=== PATIENT | female | born 1935 | race Caucasian/White ===

== ENCOUNTER 2017-05-23 07:22 | Day surgery (SDC) | payer OTHER, BC ==
[2017-05-22 09:16] VITALS: BMI 21.1
[2017-05-23] MEDS ORDERED: EPINEPHrine/PF 1 MG/1 ML (1:1,000) AMPULE ONE (07:31)
[2017-05-23] MEDS ORDERED: LIDOCAINE HCL/PF 1% SDV 5ML VIAL ONE (07:31)
[2017-05-23] MEDS ORDERED: BSS (NA/CA/MG/K) BALANCED SALT SOLUTION OPHTH SOLN 15 ML BOTTLE ONE (07:31)
[2017-05-23] MEDS ORDERED: CYCLOPENTOLATE HCL 1% OPHTH SOLN 2 ML BOTTLE ONE (07:36)
[2017-05-23] MEDS ORDERED: TROPICAMIDE 1% OPHTH SOLN 15 ML BOTTLE ONE (07:36)
[2017-05-23] MEDS ORDERED: CIPROFLOXACIN 0.3% EYE DROPS 5 ML BOTTLE ONE (07:36)
[2017-05-23] MEDS ORDERED: FLURBIPROFEN 0.03% OPHTH SOLN 2.5 ML BOTTLE ONE (07:36)
[2017-05-23] MEDS ORDERED: PHENYLEPHRINE 2.5% OPHTH SOLN 15 ML BOTTLE ONE (07:36)
[2017-05-23] MEDS ORDERED: ACETAMINOPHEN 325 MG TABLET (FP) PO PRN (07:48)
[2017-05-23 07:50] VITALS: TEMP 97.5
[2017-05-23] MEDS: TROPICAMIDE 1% OPHTH SOLN 15 ML BOTTLE OP SCH ×3 (07:55→08:10)
[2017-05-23] MEDS: PHENYLEPHRINE 2.5% OPHTH SOLN 15 ML BOTTLE OP SCH ×3 (07:55→08:10)
[2017-05-23] MEDS: FLURBIPROFEN 0.03% OPHTH SOLN 2.5 ML BOTTLE OP SCH ×3 (07:55→08:10)
[2017-05-23] MEDS: CIPROFLOXACIN HCL 0.3% OPHTH 2.5ML BOTTLE OP SCH ×3 (07:55→08:10)
[2017-05-23] MEDS: CYCLOPENTOLATE HCL 1% OPHTH SOLN 2 ML BOTTLE OP SCH ×3 (07:55→08:10)
[2017-05-23] MEDS ORDERED: POVIDONE-IODINE 5% OPHTHALMIC PREP 30 ML SOLUTION OS ONE (09:12)
[2017-05-23] MEDS ORDERED: TETRACAINE 0.5% OPHTH SOLN 2 ML BOTTLE OS ONE (09:15)
[2017-05-23] MEDS ORDERED: BSS (NA/CA/MG/K) BALANCED SALT SOLUTION OPHTH SOLN 15 ML BOTTLE OS ONE (09:24)
[2017-05-23] MEDS ORDERED: LIDOCAINE HCL 1% PRESERVATIVE FREE - 30ML VIAL IO ONE (09:24)
[2017-05-23] MEDS ORDERED: CHONDROITIN SU A/HYALUR SOD 1 KIT IO ONE ×2 (09:24→09:48)
[2017-05-23] MEDS ORDERED: EPINEPHrine/PF 1 MG/1 ML (1:1,000) AMPULE IO ONE (09:31)
[2017-05-23] MEDS ORDERED: ACETAMINOPHEN 325 MG TABLET (FP) ONE (10:20)
[2017-05-23 11:14] VITALS: BP 124/50; PULSE 62
--- NOTE | 2017-05-23 11:22 | OP ---
DATE OF OPERATION: DATE OF DICTATION: 05/23/2017 OPERATION: Phacoemulsification of left cataract with posterior chamber intraocular lens implantation. Lens used: [id number], 21.0 diopter power, serial no. [id number]. PREOPERATIVE DIAGNOSIS: Cataract, left eye. POSTOPERATIVE DIAGNOSIS: Cataract, left eye. SURGEON: Neil Pozo M.D. ANESTHESIA: Topical MAC. COMPLICATIONS: None. PROCEDURE: The patient was brought to the operating room and correctly identified along with the operative site and the correct intraocular lens power. The patient was then prepped and draped in the usual sterile fashion including 5% Betadine solution in the conjunctival sac and an eyelid drape. An eyelid speculum was then placed in the left eye. A paracentesis port was created and approximately 0.5 mL of preservative-free lidocaine was then injected into the eye. Viscoelastic was then injected to inflate the anterior chamber. A temporal clear corneal wound was created. A continuous circular capsulorrhexis was performed. The nucleus was then hydrodissected with BSS and removed with phacoemulsification. The remaining cortical material was irrigated and aspirated. Viscoelastic was injected to inflate the capsular bag and the intraocular lens was then implanted into the capsular bag. The remaining Viscoelastic was irrigated and aspirated from the eye. The IOL was noted to be well centered and completely covered by the anterior capsulorrhexis. Topical vancomycin was placed and the eye patched and shielded. All wounds were tested and found to be watertight. No suture was placed. The eye was then shielded. The patient was then discharged from the operating room in stable condition. NEIL POZO M.D. [id number]
== END 2017-05-23 11:15 | disposition home or self-care (01) ==
LOC: JASU-SURG 07:22
PROVIDERS: ATTEND Ophthalmology
PROC: 08RK3JZ Replacement of Left Lens with Synthetic Substitute, Percutaneous Approach (ICD-10-PCS; principal; 2017-05-23 09:00)
DX: H26.9 Unspecified cataract (principal)

== ENCOUNTER 2017-06-20 06:36 | Day surgery (SDC) | payer OTHER, BC ==
[2017-06-19 12:09] VITALS: BMI 21.1
[~2017-06-20 06:36] MED LIST: ACETAMINOPHEN 325 MG TABLET (FP) PO PRN; CHONDROITIN SU A/HYALUR SOD 1 KIT IO ONE; LIDOCAINE HCL 1% PRESERVATIVE FREE - 30ML VIAL IO ONE; TETRACAINE 0.5% OPHTH SOLN 2 ML BOTTLE TP ONE
[2017-06-20 07:09] VITALS: TEMP 97.8
[2017-06-20] MEDS ORDERED: TROPICAMIDE 1% OPHTH SOLN 15 ML BOTTLE ONE (07:12)
[2017-06-20] MEDS ORDERED: CYCLOPENTOLATE HCL 1% OPHTH SOLN 2 ML BOTTLE ONE (07:12)
[2017-06-20] MEDS ORDERED: FLURBIPROFEN 0.03% OPHTH SOLN 2.5 ML BOTTLE ONE (07:12)
[2017-06-20] MEDS ORDERED: CIPROFLOXACIN 0.3% EYE DROPS 5 ML BOTTLE ONE (07:12)
[2017-06-20] MEDS ORDERED: PHENYLEPHRINE 2.5% OPHTH SOLN 15 ML BOTTLE ONE (07:12)
[2017-06-20] MEDS ORDERED: CIPROFLOXACIN 0.3% EYE DROPS 5 ML BOTTLE OD ONE (07:15)
[2017-06-20] MEDS: CYCLOPENTOLATE HCL 1% OPHTH SOLN 2 ML BOTTLE OP SCH ×3 (07:15→07:35)
[2017-06-20] MEDS: TROPICAMIDE 1% OPHTH SOLN 15 ML BOTTLE OP SCH ×3 (07:15→07:35)
[2017-06-20] MEDS ORDERED: FLURBIPROFEN 0.03% OPHTH SOLN 2.5 ML BOTTLE OD ONE (07:15)
[2017-06-20] MEDS: PHENYLEPHRINE 2.5% OPHTH SOLN 15 ML BOTTLE OP SCH ×3 (07:15→07:35)
[2017-06-20] MEDS ORDERED: POVIDONE-IODINE 5% OPHTHALMIC PREP 30 ML SOLUTION ONE (07:20)
[2017-06-20] MEDS ORDERED: EPINEPHrine/PF 1 MG/1 ML (1:1,000) AMPULE ONE (07:20)
[2017-06-20] MEDS ORDERED: LIDOCAINE HCL/PF 1% SDV 5ML VIAL ONE (07:20)
[2017-06-20] MEDS ORDERED: VANCOMYCIN 500 MG VIAL (RESTRICTED TO ID ONLY) ONE (07:20)
[2017-06-20] MEDS ORDERED: WATER FOR INJ,STERILE 10 ML ONE (07:20)
[2017-06-20] MEDS ORDERED: TETRACAINE 0.5% OPHTH SOLN 2 ML BOTTLE ONE (07:21)
[2017-06-20] MEDS: CIPROFLOXACIN HCL 0.3% OPHTH 2.5ML BOTTLE OP SCH ×2 (07:25→07:34)
[2017-06-20] MEDS: FLURBIPROFEN 0.03% OPHTH SOLN 2.5 ML BOTTLE OP SCH ×2 (07:25→07:35)
[2017-06-20] MEDS ORDERED: MIDAZOLAM HCL 2 MG/2 ML SINGLE DOSE VIAL ONE (07:59)
[2017-06-20] MEDS ORDERED: TETRACAINE 0.5% OPHTH SOLN 2 ML BOTTLE TP ONE (08:05)
[2017-06-20] MEDS ORDERED: CHONDROITIN SU A/HYALUR SOD 1 KIT IO ONE (08:17)
[2017-06-20] MEDS ORDERED: LIDOCAINE HCL 1% PRESERVATIVE FREE - 30ML VIAL IO ONE (08:17)
--- NOTE | 2017-06-20 08:49 | SPEC ---
DATE OF OPERATION: DATE OF DICTATION: 06/20/2017 PREOPERATIVE DIAGNOSIS: Cataract, right eye. POSTOPERATIVE DIAGNOSIS: Cataract, right eye. OPERATION: Phacoemulsification of right eye cataract with posterior chamber intraocular lens implantation, right eye. Lens used SN60WF, 20.5 diopter power, serial number [id number]. SURGEON: Neil Pozo M.D. ANESTHESIA: Topical MAC. COMPLICATIONS: None. PROCEDURE: The patient was brought to the operating room and correctly identified along with the operative site and the correct intraocular lens martines. The patient was then prepped and draped in the usual sterile fashion including 5% Betadine solution in the conjunctival sac and an eyelid drape. An eyelid speculum was then placed in the eye. A paracentesis port was created and approximately 0.5 mL of preservative free Lidocaine was then injected into the eye. Viscoelastic was then injected to inflate the anterior chamber. A temporal clear corneal wound was created. A continuous circular capsulorrhexis was performed. The nucleus was then hydrodissected with BSS and removed with phacoemulsification. The remaining cortical material was irrigated and aspirated. Viscoelastic was injected to inflate the capsular bag and the intraocular lens was then implanted into the capsular bag. The remaining Viscoelastic was irrigated and aspirated from the eye. The IOL was noted to be well centered and completely covered by the anterior capsulorrhexis. Topical vancomycin was placed and the eye patched and shielded. All wounds were tested and found to be watertight. No suture was placed. The eye was then shielded. The patient was then discharged from the operating room in stable condition. NEIL POZO M.D. [id number]
[2017-06-20] MEDS ORDERED: ACETAMINOPHEN 325 MG TABLET (FP) ONE (09:12)
[2017-06-20 09:30] VITALS: BP 115/58; PULSE 58
== END 2017-06-20 09:35 | disposition home or self-care (01) ==
LOC: JASU-SURG 06:36
PROVIDERS: ATTEND Ophthalmology
PROC: 08RJ3JZ Replacement of Right Lens with Synthetic Substitute, Percutaneous Approach (ICD-10-PCS; principal; 2017-06-20 08:00)
DX: H26.9 Unspecified cataract (principal)

== ENCOUNTER 2017-09-18 15:15 | Inpatient (IN) | payer OTHER, BC ==
--- NOTE | 2017-09-18 15:28 | PDOC ---
Rapid Medical Evaluation Time Seen by Provider: 09/18/17 15:26 Medical Evaluation: Allergies Allergy/AdvReac Type Severity Reaction Status Date / Time No Known Drug Allergies Allergy Verified 09/18/17 15:26 STEROIDS AdvReac "STOMACH Uncoded 09/18/17 15:26 ULCER" 09/18/17 15:26 I have performed a brief in-person evaluation of this patient. The patient presents with a chief complaint of an episode of confusion at 8:30am , brought to Dr. Lara who did an cat scan and a MRI in this hospital. Also had labs done. Pertinent physical exam findings are NAD alert and oriented x 2 lungs clear bilateral ambulating with steady gait I have ordered the following labs and MRI in computer this patient will proceed to the ED for further evaluation. 09/18/17 15:31
[2017-09-18 15:32] VITALS: BMI 20.7
--- NOTE | 2017-09-18 16:48 | PDOC ---
History of Present Illness - General Chief Complaint: Altered Mental Status Stated Complaint: ALTERED MENTAL STATUS Time Seen by Provider: 09/18/17 15:26 - History of Present Illness Initial Comments: 82 year old female with PMH of HTN presenting with episode of altered mental stats approximately 10 hours prior. Per family at bedside, she was disoriented around 7-8 AM and had confused speech. She recovered slowly afterward and saw her relative, Dr. Lara who set her up with Dr. Miller (neurologist). Together they performed a brain MRI, chest XR, UA, EKG and basic labs that were unrevealing. They sent the patient over for proposed admission under Dr. Shaikh for tele monitoring and further workup. Patent denies fevers, chills, nause,a vomiting, diarrhea, cough, chest pain, headache, or recent sick contacts. 09/18/17 16:57 Past History - Past Medical History Allergies/Adverse Reactions: Allergies Allergy/AdvReac Type Severity Reaction Status Date / Time No Known Drug Allergies Allergy Verified 09/18/17 15:26 STEROIDS AdvReac "STOMACH Uncoded 09/18/17 15:26 ULCER" Home Medications: Ambulatory Orders Atorvastatin Ca [Lipitor] 20 mg PO DAILY 05/22/17 Metoprolol Succinate [Toprol Xl] 50 mg PO DAILY 05/22/17 Dexlansoprazole [Dexilant] 60 mg PO PRN PRN 09/18/17 Mirabegron [Myrbetriq] 0 mg PO DAILY 09/18/17 Anemia: No Asthma: No Cancer: No Cardiac Disorders: No CVA: No COPD: No CHF: No DVT: No Dementia: No Diabetes: No GI Disorders: Yes (ulcer) Disorders: No HTN: Yes Hypercholesterolemia: Yes Liver Disease: No Seizures: No Thyroid Disease: No - Surgical History Abdominal Surgery: Yes (GI BLEED, cyst removed from pancreas) Appendectomy: Yes Cholecystectomy: Yes Orthopedic Surgery: Yes (GERMAINE KNEE REPLACEMENT) - Immunization History Immunization Up to Date: Yes - Suicide/Smoking/Psychosocial Hx Smoking Status: Yes Smoking History: Never smoked Have you smoked in the past 12 months: No Number of Cigarettes Smoked Daily: 0 Information on smoking cessation initiated: No Hx Alcohol Use: No Drug/Substance Use Hx: No Substance Use Type: None Hx Substance Use Treatment: No Review of Systems - Review of Systems Constitutional: No: Chills, Diaphoresis, Fever HEENTM: No: Eye Pain, Blurred Vision Respiratory: No: Cough, Orthopnea, Shortness of Breath Cardiac (ROS): No: Chest Pain, Edema, Irregular Heart Rate ABD/GI: No: Constipated, Diarrhea, Nausea, Vomiting : No: Burning, Dysuria, Discharge, Hematuria Musculoskeletal: No: Back Pain, Gout, Joint Pain Integumentary: No: Bruising, Erythema, Flushing, Lesions Neurological: No: Headache, Numbness, Paresthesia *Physical Exam - Vital Signs Last Vital Signs Temp Pulse Resp BP Pulse Ox 98.2 F 62 17 156/91 100 09/18/17 15:27 09/18/17 15:27 09/18/17 15:27 09/18/17 15:27 09/18/17 15:27 - Physical Exam General Appearance: Yes: Nourished, Appropriately Dressed. No: Apparent Distress HEENT: positive: EOMI, MINA, Normal ENT Inspection, Normal Voice, Pharynx Normal Neck: positive: Trachea midline, Normal Thyroid, Supple. negative: Tender, Rigid Respiratory/Chest: negative: Chest Tender, Lungs Clear (fine crackles at LLLB), Normal Breath Sounds, Respiratory Distress, Accessory Muscle Use Cardiovascular: positive: Regular Rhythm, Regular Rate Gastrointestinal/Abdominal: positive: Normal Bowel Sounds, Flat, Soft. negative : Tender Musculoskeletal: positive: Normal Inspection. negative: CVA Tenderness Extremity: positive: Normal Capillary Refill, Normal Inspection, Normal Range of Motion. negative: Tender Integumentary: positive: Normal Color, Dry, Warm Neurologic: positive: Alert, Normal Mood/Affect, Normal Response, Motor Strength 5/5. negative: Fully Oriented (AOx2 (person and place)) ED Treatment Course - LABORATORY CBC & Chemistry Diagram: 09/18/17 17:20 09/18/17 20:00 Medical Decision Making - Medical Decision Making 82 year old female with PMH of HTN presenting with episode of altered mental stats approximately 10 hours prior. All work up thus far negative for intracranial or infectious etiology although there were some crackles in the left lower lung base that could be signs of a brewing infection despite negative XR. Spoke to cardiology, Dr. Miller, and Dr. Shaikh. Will admit for AMS workup given she is still slightly off from her baseline. 09/18/17 22:22 *DC/Admit/Observation/Transfer Diagnosis at time of Disposition: Altered mental status Qualifiers: Altered mental status type: disorientation Qualified Code(s): R41.0 - Disorientation, unspecified - Discharge Dispostion Condition at time of disposition: Stable Admit: Yes - Referrals - Patient Instructions - Post Discharge Activity
--- NOTE | 2017-09-18 17:17 | PDOC ---
Attending Attestation - Resident Resident Name: AleJaninetocristopher - ED Attending Attestation I have performed the following: I have examined & evaluated the patient, The case was reviewed & discussed with the resident, I agree w/resident's findings & plan, Exceptions are as noted - HPI HPI: 09/18/17 17:07 82 yo female brought from Dr Cruz's office for AMS that was evident when she got up this morning - Physicial Exam PE: 09/19/17 00:49 82 YO FEMALE WALKING WITH ASSISTANCE OF FAMILY HEAD NCAT NECK SUPPLE LUNGS NO WHEEZING CVS [id number] ABD NONTENDER EXT NO DEFORMITY SKIN WARM AND DRY NEURO ALERT.CONVERSANT,AMBULATORY ' - Medical Decision Making 09/18/17 17:17 MRI done no acute bleed or infarct appreciated,being admitted to tele by Dr Shaikh and neuro consultation Dr Mckinnon
--- NOTE | 2017-09-18 17:23 | CON.CARD ---
Cardiology Consult (text) - Consultation Consultation Note: IMP: Altered MS HTN HL H/o non-obstx carotid dz REC: MRI negative, await neuro input Tele Cycle cardiac enzymes Echo and carotid US TSH and metabolic w/u Full dictation to follow.
[2017-09-18 17:41] LABS: BASO % 0.9 % (0-2.0); EOS % 1.5 % (0-4.5); HEMATOCRIT 38.4 % (32.4-45.2); HEMOGLOBIN 13.1 GM/dL (10.7-15.3); MCHC 34.2 g/dl (32.0-36.0); MEAN CELL VOLUME 93.6 fl (80-96); MEAN PLT VOLUME 9.2 fl (7.5-11.1); MONO % 9.8 % (3.8-10.2); NEUT % 53.8 % (42.8-82.8); PLATELET COUNT 296 K/MM3 (134-434); RDW 14.2 % (11.6-15.6); WHITE BLOOD COUNT 7.9 K/mm3 (4.0-10.0)
[2017-09-18 17:42] LABS: URINE APPEARANCE SLCLOUDY; URINE BILIRUBIN NEGATIVE (<2.0 mg/dL); URINE COLOR YELLOW; URINE GLUCOSE (UA) NEGATIVE (NEGATIVE); URINE KETONE NEGATIVE (NEGATIVE); URINE LEUK ESTERASE TRACE (NEGATIVE); URINE NITRITE NEGATIVE (NEGATIVE); URINE PROTEIN NEGATIVE (NEGATIVE); URINE UROBILINOGEN NEGATIVE mg/dL (0.2-1.0)
[2017-09-18 17:54] LABS: EPI CELLS RARE /HPF (FEW)
--- NOTE | 2017-09-18 19:18 | CON.NEURO ---
Consult Consult Specialty:: [facility] Referred by:: Marco Shaikh Reason for Consultation:: Confsuion - History of Present Illness History of Present Illness: 82 years old woman CAD OA PUD Carpal Tunnel Chol Patient was ok till this am when she was called by her family and was noted to be confused Patient was taken to her PCP Head CT done and was transferred to the MRI at [facility] No report of LOC no fever No seizure like activity [facility] bedside Mildly confused but appropriate MRI brain images reveiwed with radiology - History Source History Provided By: Family Member Limitations to Obtaining History: Clinical Condition - Alcohol/Substance Use Hx Alcohol Use: No - Smoking History Smoking history: Never smoked Have you smoked in the past 12 months: No Aproximately how many cigarettes per day: 0 Home Medications - Allergies Allergies/Adverse Reactions: Allergies Allergy/AdvReac Type Severity Reaction Status Date / Time No Known Drug Allergies Allergy Verified 09/18/17 15:26 STEROIDS AdvReac "STOMACH Uncoded 09/18/17 15:26 ULCER" - Home Medications Home Medications: Ambulatory Orders Atorvastatin Ca [Lipitor] 20 mg PO DAILY 05/22/17 Metoprolol Succinate [Toprol Xl] 50 mg PO DAILY 05/22/17 Dexlansoprazole [Dexilant] 60 mg PO PRN PRN 09/18/17 Mirabegron [Myrbetriq] 0 mg PO DAILY 09/18/17 Family Disease History - Family Disease History Family History: Denies Review of Systems - Review of Systems Constitutional: reports: No Symptoms Eyes: reports: No Symptoms Neurological: reports: Change in LOC, Change in Speech, Confusion Physical Exam-Neuro Vital Signs: Vital Signs Temperature 98.2 F 09/18/17 15:27 Pulse Rate 62 09/18/17 15:27 Respiratory Rate 17 09/18/17 15:27 Blood Pressure 156/91 09/18/17 15:27 O2 Sat by Pulse Oximetry (%) 100 09/18/17 15:27 Labs: CBC, BMP 09/18/17 17:20 09/18/17 17:20 - Neuro Exam Level Of Consciousness: Yes: Oriented to Person, Oriented to Place, Oriented to Time Eyes: Yes: PERRLA Speech: WNL Dominant Hand: Right Mini Mental Exam: 27 Cranial Nerves II-XII Intact: Yes Gag: Present DTR's: 1+ Left Bicep, 1+ Right Bicep, 1+ Left Brachioradialis, 1+ Right Brachioradialis Response to light touch: Normal Response to pain prick: Normal Response to temperature: Normal Response to vibration: Normal Imaging - Results MRI: Image Reviewed Problem List - Problems (1) Acute confusion Assessment/Plan: Rule out Acute sepsis UTI Doubt this CO poisoning No evidence neuro or radiology of acute CVA Code(s): R41.0 - DISORIENTATION, UNSPECIFIED (2) Mild cognitive impairment Assessment/Plan: Blood work Fall precaution Will try Aricpet very low dosage at the office No aspirin due to stomach issue Code(s): G31.84 - MILD COGNITIVE IMPAIRMENT, SO STATED
[2017-09-18 20:38] LABS: ALBUMIN 3.5 g/dl (3.4-5.0); ANION GAP 4 (8-16); BILIRUBIN,TOTAL 1.1 mg/dL (0.2-1.0); BLOOD UREA NITROGEN 21 mg/dL (7-18); CALCIUM 8.9 mg/dL (8.5-10.1); CHLORIDE 108 mmol/L (98-107); CO2 28 mmol/L (21-32); CREATININE 0.8 mg/dL (0.55-1.02); GLUCOSE,RANDOM 99 mg/dL (74-106); SGOT/AST 22 U/L (15-37); SGPT/ALT 14 U/L (12-78); SODIUM 140 mmol/L (136-145); TOT PROT 6.3 g/dl (6.4-8.2)
[2017-09-18 20:41] LABS: ALK PHOS 41 U/L (45-117)
--- NOTE | 2017-09-19 01:21 | HP ---
Admitting History and Physical - Admission History of Present Illness: 82 y/o F with a h/o HTN presents with episode of altered mental status. According to family she has problems with speech and is not oriented. Seen by Dr. Lara and Dr. Miller (neurologist). Brain MRI, chest XR, UA, EKG and basic labs that were unrevealing. She presents for further evaluation and monitoring for changes. She denies cp, pp, sob. No dizziness, fever or chills. - Past Medical History ...: No - Smoking History Smoking history: Never smoked Have you smoked in the past 12 months: No Aproximately how many cigarettes per day: 0 - Alcohol/Substance Use Hx Alcohol Use: No Home Medications - Allergies Allergies/Adverse Reactions: Allergies Allergy/AdvReac Type Severity Reaction Status Date / Time No Known Drug Allergies Allergy Verified 09/18/17 15:26 STEROIDS AdvReac "STOMACH Uncoded 09/18/17 15:26 ULCER" - Home Medications Home Medications: Ambulatory Orders Atorvastatin Ca [Lipitor] 20 mg PO DAILY 05/22/17 Metoprolol Succinate [Toprol Xl] 50 mg PO DAILY 05/22/17 Physical Examination Vital Signs: Vital Signs Temperature 97.9 F 09/18/17 23:52 Pulse Rate 60 09/18/17 23:52 Respiratory Rate 18 09/19/17 00:03 Blood Pressure 140/66 09/18/17 23:52 O2 Sat by Pulse Oximetry (%) 97 09/19/17 00:03 Constitutional: Yes: No Distress Cardiovascular: Yes: Regular Rate and Rhythm Respiratory: Yes: Regular, CTA Bilaterally Gastrointestinal: Yes: Normal Bowel Sounds, Soft Labs: CBC, BMP 09/18/17 17:20 09/18/17 20:00 Problem List - Problems (1) Acute confusion Code(s): R41.0 - DISORIENTATION, UNSPECIFIED (2) Altered mental status Code(s): R41.82 - ALTERED MENTAL STATUS, UNSPECIFIED Qualifiers: Altered mental status type: disorientation Qualified Code(s): R41.0 - Disorientation, unspecified (3) Mild cognitive impairment Code(s): G31.84 - MILD COGNITIVE IMPAIRMENT, SO STATED Assessment/Plan (1) Acute confusion/Mild cognitive impairment monitor changes for changes -labs No evidence neuro or radiology of acute CVA
[2017-09-19 06:53] LABS: BASO % 1.1 % (0-2.0); EOS % 2.5 % (0-4.5); HEMATOCRIT 34.6 % (32.4-45.2); HEMOGLOBIN 11.7 GM/dL (10.7-15.3); LYMPH % 39.2 % (8-40); MCH 31.9 pg (25.7-33.7); MCHC 33.9 g/dl (32.0-36.0); MEAN CELL VOLUME 93.9 fl (80-96); MEAN PLT VOLUME 9.2 fl (7.5-11.1); MONO % 11.1 % (3.8-10.2); NEUT % 46.1 % (42.8-82.8); PLATELET COUNT 243 K/MM3 (134-434); RBC 3.68 M/mm3 (3.60-5.2); RDW 13.9 % (11.6-15.6); WHITE BLOOD COUNT 6.5 K/mm3 (4.0-10.0)
--- NOTE | 2017-09-19 07:05 | CONS ---
DATE OF CONSULTATION: 09/18/2017 REQUESTED BY: Nam Lara MD HISTORY OF PRESENT ILLNESS: The patient was seen in the office today. She is well known to me. She is an 82-year-old female who presented to the office today with altered mental status accompanied by her family. Family reports that her mental status is off of her baseline and happened acutely: She is unable to recall simple things. No focal neurological deficits, no chest pain, palpitations, syncope. No CHF or fever. PAST MEDICAL HISTORY: Significant for hypertension, hyperlipidemia and GERD. ALLERGIES: She is allergic to STEROIDS. HOME MEDICATIONS: Included Toprol XL 50 daily; Lipitor 20 daily; Dexilant 60 p.r.n. FAMILY HISTORY: Noncontributory. SOCIAL HISTORY: Never smoked. PHYSICAL EXAMINATION: Vital Signs: Afebrile, temperature 98.1, pulse 58, regular, blood pressure 117/56, O2 saturation 97 on room air. Neck: No bruits. Heart: S1, 2 regular. No murmurs. Chest: Clear. Abdomen: Soft, nontender. Extremities: No edema. IMAGING: Head CT in the office was negative. MRI here in the hospital was negative for acute stroke or mass. Chest x-ray showed no significant cardiopulmonary disease. Carotid ultrasound was negative. LABORATORY DATA: CBC was normal. Sodium 140, potassium 4.0, creatinine 0.8. LFTs normal. CK, troponin pending. Urinalysis showed specific gravity of 1.05, 1+ blood, 3 white cells, otherwise was negative. IMPRESSION: 1. Altered mental status. 2. Hypertension. 3. Hyperlipidemia. 4. History of nonobstructive carotid disease. RECOMMENDATIONS: 1. Follow up official MRI report and neurologic consultation. 2. Telemetry. 3. Serial cardiac enzymes. 4. Echo and carotid ultrasound. 5. TSH and metabolic workup. Thank you for the consultation. BRIAN GARCIA M.D. MICHAEL/[id number]
[2017-09-19 07:50] LABS: ALBUMIN 3.3 g/dl (3.4-5.0); ALK PHOS 37 U/L (45-117); BILIRUBIN,TOTAL 1.1 mg/dL (0.2-1.0); BLOOD UREA NITROGEN 16 mg/dL (7-18); CALCIUM 8.8 mg/dL (8.5-10.1); CO2 27 mmol/L (21-32); CREATININE 0.7 mg/dL (0.55-1.02); GLUCOSE,RANDOM 86 mg/dL (74-106); SGOT/AST 18 U/L (15-37); SGPT/ALT 14 U/L (12-78); TOT PROT 6.2 g/dl (6.4-8.2)
[2017-09-19 08:07] LABS: AMYLASE 76 U/L (25-115); ANION GAP 8 (8-16); CHLORIDE 108 mmol/L (98-107); LIPASE 143 U/L (73-393); POTASSIUM 3.8 mmol/L (3.5-5.1); SODIUM 143 mmol/L (136-145)
--- NOTE | 2017-09-19 08:46 | PN ---
Progress Note (short form) - Note Progress Note: TELE: NSR MRI brain negative. Appreciate Neuro consult. Mental status almost back to baseline per daughter. Carotid non-obstx dz Echo being done. Exam is unchanged and normal from CV standpoint. No focal neuro findings. REC: To f/u echo; await 2nd cardiac enzyme. Doubt ischemia To complete metabolic w/u- this can be followed as outpatient. Outpatient neuro f/u No further inpt. CV work up planned D/w Daughter and RN at bedside.
[2017-09-19 09:20] LABS: CHOLESTEROL 145 mg/dL (50-200); HDL CHOLESTEROL 69 mg/dL (40-60); TRIGLYCERIDES 91 mg/dL (35-160)
[2017-09-19] MEDS ORDERED: HEPARIN NA (PORCINE) 5,000 UNITS/ML 1ML VIAL SQ SCH (10:00)
--- NOTE | 2017-09-19 12:04 | EKG ---
Test Reason : Blood Pressure : / mmHG Vent. Rate : 057 BPM Atrial Rate : 057 BPM P-R Int : 162 ms QRS Dur : 082 ms QT Int : 408 ms P-R-T Axes : 050 044 063 degrees QTc Int : 397 ms SINUS BRADYCARDIA ABNORMAL ECG WHEN COMPARED WITH ECG OF 04-MAY-2017 10:35, NO SIGNIFICANT CHANGE WAS FOUND Confirmed by ESTHER DURAN MD ([id number]) on 09/19/2017 12:03:56 PM Referred By: Confirmed By:ESTHER DURAN MD
[2017-09-19 15:45] VITALS: TEMP 98.8
[2017-09-19 19:05] VITALS: BP 134/50; PULSE 59
[2017-09-19] MEDS ORDERED: ATORVASTATIN CA 20 MG TABLET (FP) PO SCH (22:00)
[2017-09-20 08:09] LABS: CARCINOEMBRYONIC ANTIGEN 2.2 ng/mL (0.0-4.7)
--- NOTE | 2017-09-20 16:23 | DS ---
Physical Examination Vital Signs: Vital Signs Temperature 98.8 F 09/19/17 17:00 Pulse Rate 59 L 09/19/17 17:00 Respiratory Rate 18 09/19/17 17:00 Blood Pressure 134/50 09/19/17 17:00 O2 Sat by Pulse Oximetry (%) 97 09/19/17 09:00 Constitutional: Yes: No Distress Cardiovascular: Yes: Regular Rate and Rhythm Respiratory: Yes: Regular, CTA Bilaterally Gastrointestinal: Yes: Normal Bowel Sounds Labs: CBC, BMP 09/19/17 06:25 09/19/17 06:25 Discharge Summary Reason For Visit: ALTERED MENTAL STATUS (1) Acute confusion (2) Mild cognitive impairment Hospital Course: 82 y/o F with a h/o HTN presents with episode of altered mental status. According to family she has problems with speech and is not oriented. Seen by Dr. Lara and Dr. Miller (neurologist). Brain MRI, chest XR, UA, EKG and basic labs that were unrevealing. She presented for further evaluation and monitoring for changes. Over the course of stay she improved and was d/c'd to follow as outpt. Condition: Good - Instructions Diet, Activity, Other Instructions: 2 gram sodium diet Increase fluids See Dr Lara in 1 week Referrals: Nam Lara MD [Primary Care Provider] - Disposition: HOME - Home Medications Comprehensive Discharge Medication List: Ambulatory Orders Atorvastatin Ca [Lipitor] 20 mg PO DAILY 05/22/17 Metoprolol Succinate [Toprol Xl] 50 mg PO DAILY 05/22/17
== END 2017-09-19 19:26 | disposition home or self-care (01) | DRG 57 ==
LOC: JER 15:15 → JERBED 17:06 → J4W 20:49 → OBSVTOIN 09-19 00:33
PROVIDERS: ADMIT Internal Medicine; ATTEND Internal Medicine
DX: G31.84 Mild cognitive impairment of uncertain or unknown etiology (principal); R41.82 Altered mental status, unspecified; I10 Essential (primary) hypertension; E78.5 Hyperlipidemia, unspecified; R41.0 Disorientation, unspecified; I25.10 Atherosclerotic heart disease of native coronary artery without angina pectoris
CPT/HCPCS: 36415; 70552-TC; 71045-TC-FY; 71250-TC; 74176-TC; 76856-TC; 80053; 80061; 81003; 81015; 82140; 82150; 82378; 82550; 82607; 82962; 83036; 83690; 83721; 84443; 84484; 84681; 85025; 85027; 85651; 86301; 86304; 86618; 87086; 93005; 93010; 93306-TC; 93880-TC; 97116-GP; 97161-GP; 99285-25; C1887; G0378

== ENCOUNTER 2020-09-14 09:34 | Emergency (ER) | payer OTHER, BC ==
[2020-09-14 10:00] VITALS: BMI 21.0
[2020-09-14] MEDS ORDERED: SODIUM CHLORIDE 1,000 ML IV STA (10:08)
[2020-09-14 10:48] LABS: BASO % 0.6 % (0-2.0); EOS % 0.2 % (0-4.5); HEMATOCRIT 37.5 % (32.4-45.2); HEMOGLOBIN 12.4 GM/dL (10.7-15.3); LYMPH % 12.1 % (8-40); MCH 30.5 pg (25.7-33.7); MEAN CELL VOLUME 92.5 fl (80-96); MONO % 7.6 % (3.8-10.2); NEUT % 79.5 % (42.8-82.8); RBC 4.06 M/mm3 (3.60-5.2); RDW 15.3 % (11.6-15.6); WHITE BLOOD COUNT 16.7 K/mm3 (4.0-10.0)
[2020-09-14 11:02] LABS: CALCIUM 9.4 mg/dL (8.5-10.1)
[2020-09-14 11:03] LABS: ALBUMIN 3.4 g/dl (3.4-5.0); MAGNESIUM 2.2 mg/dL (1.8-2.4)
[2020-09-14 11:06] LABS: PHOSPHOROUS 2.8 mg/dL (2.5-4.9)
[2020-09-14 11:07] LABS: TOT PROT 7.3 g/dl (6.4-8.2)
[2020-09-14 11:08] LABS: BILIRUBIN,TOTAL 1.4 mg/dL (0.2-1); MEAN PLT VOLUME 10.1 fl (7.5-11.1); PLATELET COUNT 373 K/MM3 (134-434)
[2020-09-14 17:41] LABS: BLOOD UREA NITROGEN 21.2 mg/dL (7-18); CALCIUM 8.7 mg/dL (8.5-10.1)
[2020-09-14 17:45] LABS: CREATININE 0.8 mg/dL (0.55-1.3)
[2020-09-14 18:07] VITALS: BP 101/58; PULSE 79; TEMP 98.6
[2020-09-14 18:23] LABS: PH,URINE 6.5 (5.0-8.0); URINE APPEARANCE CLEAR; URINE BILIRUBIN NEGATIVE (NEGATIVE); URINE COLOR YELLOW; URINE GLUCOSE (UA) NEGATIVE (NEGATIVE); URINE KETONE NEGATIVE (NEGATIVE)
[2020-09-14 18:24] LABS: URINE LEUK ESTERASE NEGATIVE (NEGATIVE); URINE NITRITE NEGATIVE (NEGATIVE); URINE PROTEIN NEGATIVE (NEGATIVE); URINE UROBILINOGEN 0.2 mg/dL (0.2-1.0)
== END 2020-09-14 18:55 | disposition home or self-care (01) ==
LOC: JER 09:34
PROC: 3E0337Z Introduction of Electrolytic and Water Balance Substance into Peripheral Vein, Percutaneous Approach (ICD-10-PCS; principal; 2020-09-14)
DX: K59.00 Constipation, unspecified (principal); R10.9 Unspecified abdominal pain
CPT/HCPCS: 36415; 71045-TC-FY; 74018-TC-FY; 74177-TC; 80048; 80053; 81003; 83690; 83735; 84100; 85025; 87086; 99285-25; C9803; Q9967; U0003; U0005